=== PATIENT | female | born 1945 | race Caucasian/White ===

== ENCOUNTER → 2021-05-22 | Outpatient (CLI) | payer MEDICARE ==
[~2021-05-22] MED LIST: ACETAMINOPHEN325 M1 PO; ALBUTEROL2.5 MG/31 INH; AMBIEN 10 MG TA10 MG PO; AMOXIL 875 MG875 M2 PO; ANTIBIOTIC; AUGMENTIN 875-1 EACH PO; AZITHROMYCIN500 MG PO; BANOPHEN25 MG PO; BENTYL 20 MG TA20 M1 PO; BROVANA15 MCG/2 M INH; BUDESONIDE0.5 MG/2 M NEB; CARBIDOPA/LEVO1 EACH; CEFDINIR300 MG PO; CLONAZEPAM 0.50.5 M1 PO; CLONAZEPAM 1 MG1 M1 PO; COLACE100 MG PO; COZAAR 25 MG TA25 M1 PO; COZAAR 25 MG TA25 M2 PO; COZAAR100 MG PO; DIOVAN160 MG PO; ELIQUIS2.5 MG PO; ELIQUIS5 M1 PO; FLEXERIL; HYDROCHLOROTH12.5 M1 PO; HYDROCHLOROTH12.5 M2 PO; HYDROCHLOROTHIA25 M2 PO; INHALER; IPRAT-ALBUT 0.5-3 ML INH; LAXATIVE5 M1 PO; LEVO-T25 MCG PO; LIDODERM1 EACH TRANSDERM; LIPITOR 20 MG T20 M1 PO; LOSARTAN PO; LOSARTAN-HCTZ1 EAC3 PO; MEDROLDOSEPACK PO; MELATONIN5 M1 PO; METHADONE HCL5 MG PO; MILK OF MA2400 MG/11 PO; MOBIC7.5 M1 PO; MORPHINE SULFAT15 MG PO; MS CONTIN15 MG PO; NEURONTIN 300M300 M2 PO; NORCO 5-325 TA1 EACH PO; NORVASC 5 MG TAB5 MG; NORVASC5 MG PO; ONDANSETRON HCL4 M2 PO; PERCOCET 10-321 EAC1 PO; PERCOCET 10-321 EACH PO; PERCOCET 5-3251 EACH PO; PHENERGAN 25 MG25 M1 PO; PREDNISONE 10 M10 M1 PO; PREDNISONE 10 M10 MG PO; PREDNISONE 20 M20 M1 PO; PREDNISONE 20 M20 MG PO; PROTONIX40 M1 PO; PULMICORT0.5 MG/2 M INH; REQUIP 1 MG TABL1 M1 PO; SINEMET 10-1001 EAC1 PO; SINEMET 25-1001 EAC1 PO; SINGULAIR 10 MG10 M1 PO; SPIRIVA18 MCG; STOOL SOFTENER100 MG PO; SYMBICORT160 MCG/4.; SYMBICORT160 MCG/4. INH; SYNTHROID25 MC1 PO; TAMIFLU75 MG PO; TESSALON PERLE100 M1 PO; TESSALON PERLE100 MG PO; TRELEGY ELLIPT1 EACH; TRELEGY ELLIPT1 EACH INH; ULTRAM 50MG TAB50 MG PO; ULTRAM50 MG PO; VENTOLIN HFA 1818 GM INH; VITAMIN D32000 UNI2 PO; VITAMIN D375 MCG PO; ZANAFLEX4 M1 PO; ZANAFLEX4 M2 PO; ZOFRAN4 MG PO; ZPAK PO; [UNRECOGNIZED DRUG - OTHER]
[2021-05-22 09:33] LABS: PROTIME 10.9 Seconds (10.5-12.1)
== END | disposition home or self-care (01) ==
LOC: RAD 08:42
PROVIDERS: ATTEND Specialist
DX: M54.16 Radiculopathy, lumbar region (principal); M48.061 Spinal stenosis, lumbar region without neurogenic claudication; M54.12 Radiculopathy, cervical region; M48.02 Spinal stenosis, cervical region; G95.89 Other specified diseases of spinal cord; J44.9 Chronic obstructive pulmonary disease, unspecified; Z79.899 Other long term (current) drug therapy; Z88.8 Allergy status to other drugs, medicaments and biological substances; Z79.01 Long term (current) use of anticoagulants; Z86.718 Personal history of other venous thrombosis and embolism

== ENCOUNTER → 2021-07-23 | Outpatient (CLI) | payer MEDICARE ==
[~2021-07-23] MED LIST changes: +ELIQUIS5 MG PO; +LOSARTAN POTASS50 MG PO; +VITAMIN D350 MC3 PO; +ZANAFLEX2 M1 PO
[2021-07-23 10:49] LABS: HEMATOCRIT 36.6 % (37.0-47.0); HEMOGLOBIN 12.3 gm/dL (12.0-15.0); MCH 29.7 pg (26.0-34.0); MCHC 33.6 g/dL (28.0-37.0); MCV 88.5 fL (80.0-100.0); RBC 4.14 mil/uL (4.20-5.00); RDW 14.1 % (10.5-14.5)
[2021-07-23 11:03] LABS: ALBUMIN 3.4 g/dL (3.4-5.0); CALCIUM 9.3 mg/dL (8.5-10.1); CREATININE 1.2 mg/dL (0.6-1.0); POTASSIUM 4.3 mmol/L (3.5-5.1); TOTAL BILIRUBIN 0.6 mg/dL (0.2-1.0); TOTAL PROTEIN 5.9 g/dL (6.4-8.2)
[2021-07-23 11:07] LABS: APTT 25.6 Seconds (24.5-32.8); PROTIME 10.9 Seconds (10.5-12.1)
[2021-07-23 11:13] LABS: URINE BILIRUBIN NEGATIVE (Negative); URINE BLOOD NEGATIVE (Negative); URINE CLARITY CLEAR; URINE COLOR YELLOW; URINE GLUCOSE-RANDOM* NEGATIVE (Negative); URINE KETONES NEGATIVE (Negative); URINE LEUKOCYTES-REFLEX NEGATIVE (Negative); URINE NITRITE-REFLEX NEGATIVE (Negative); URINE PROTEIN (DIPSTICK) NEGATIVE (Negative); URINE SPECIFIC GRAVITY 1.015 (1.005-1.035); URINE UROBILINOGEN 0.2 E.U./dl (0.2-1.0)
--- NOTE | 2021-07-24 07:42 | EKG ---
[address] [address] ELECTROCARDIOGRAM REPORT Name: STEPAN LUIS Room #: [facility]#: [id number] Admission: 07/23/21 Attend Phys: Gabriel Borden, Discharge: Date of : 45 Report #: [id number] [facility] Test Date: 2021-07-23 Test Time: 10:49:58 Pat Name: STEPAN LUIS Department: Room: Gender: F [employer]: GERA JAMES : 1945 Requested By: Gabriel Borden Order Number: [id number] MD: Mark Kelly Measurements Intervals [place] Rate: 57 P: 75 OK: 181 QRS: 24 QRSD: 86 T: 13 QT: 448 QTc: 437 Interpretive Statements Sinus bradycardia Otherwise no significant abnormality No previous ECG available for comparison Electronically Signed On 07-24-2021 7:41:40 [employer] by Mark Kelly [email or web address] <ELECTRONICALLY SIGNED> By: Mark Kelly MD, [facility] 07/24/21 0741 1049 1049 Mark Kelly MD, FACC /EPI
== END ==
LOC: PAC 10:13
PROVIDERS: ATTEND Specialist
DX: R00.1 Bradycardia, unspecified (principal); I10 Essential (primary) hypertension; Z20.822 Contact with and (suspected) exposure to COVID-19

== ENCOUNTER 2021-07-29 09:57 | Inpatient (IN) | payer MEDICARE ==
[~2021-07-29] VITALS: Ht 162.6 cm; Wt 74.8 kg
[2021-07-29 12:03] VITALS: BP 177/66
[2021-07-29 14:14] VITALS: BP 177/66
[2021-07-30] MEDS ORDERED: PERCOCET 10-321 EAC1 PO (13:25)
== END 2021-07-29 14:35 | disposition home or self-care (01) | DRG 520 ==
LOC: EDSTATUS 09:57 → PRE 09:58 → TBA 10:21 → PRE 10:28 → OR 13:44 → PRE 14:22 → TBA 14:35 → PRE 15:01
PROVIDERS: ADMIT Specialist; ATTEND Specialist
PROC: 00NY0ZZ Release Lumbar Spinal Cord, Open Approach (ICD-10-PCS; principal; 2021-07-29)
PROC: 01NB0ZZ Release Lumbar Nerve, Open Approach (ICD-10-PCS; principal; 2021-07-29)
DX: M48.061 Spinal stenosis, lumbar region without neurogenic claudication (principal); Z20.822 Contact with and (suspected) exposure to COVID-19; J44.9 Chronic obstructive pulmonary disease, unspecified; G25.81 Restless legs syndrome; J45.909 Unspecified asthma, uncomplicated; E78.5 Hyperlipidemia, unspecified; M19.90 Unspecified osteoarthritis, unspecified site; Z88.6 Allergy status to analgesic agent; Z87.891 Personal history of nicotine dependence; Z88.8 Allergy status to other drugs, medicaments and biological substances
CPT/HCPCS: 50010; 50101; 50402; 50850; 51751; 51878; 52259; 56525; 56528; 56532; 57103; 58457; 62110; 62900; 65130; 70005